=== PATIENT | female | born 1965 | race African-American/Black ===

== ENCOUNTER 2017-12-19 10:53 | Day surgery (SDC) | payer OTHER ==
[2017-12-19] MEDS: NS 1,000 ML IV (11:11)
[2017-12-19] MEDS ORDERED: PROPOFOL 200 MG/20 ML VIAL As Ordered (12:02)
[2017-12-19] MEDS ORDERED: LIDOCAINE 2% INJ 100 MG/5 ML SDV (FOR ANES.) As Ordered (12:02)
[2017-12-19] MEDS ORDERED: fentaNYL 100 MCG/2 ML INJECTION (J3010) As Ordered (12:02)
== END 2017-12-19 13:10 | disposition home or self-care (01) ==
LOC: M OPP 10:53
DX: Z12.11 Encounter for screening for malignant neoplasm of colon (principal); K64.0 First degree hemorrhoids; Z53.8 Procedure and treatment not carried out for other reasons; R10.13 Epigastric pain; E11.9 Type 2 diabetes mellitus without complications; R51 Headache; F43.10 Post-traumatic stress disorder, unspecified; Z90.710 Acquired absence of both cervix and uterus; Z78.0 Asymptomatic menopausal state; Z79.4 Long term (current) use of insulin; Z79.899 Other long term (current) drug therapy
CPT/HCPCS: 45378